=== PATIENT | male | born 1980 | race Caucasian/White ===

== ENCOUNTER 2018-05-18 14:45 | Emergency (ER) | payer SELFPAY ==
[~2018-05-18] VITALS: Ht 162.6 cm; Wt 59.1 kg
[2018-05-18 14:49] VITALS: TEMP 97.7
[2018-05-18] MEDS ORDERED: IMITREX NA20 MG/SPRA NS (15:45)
[2018-05-18 16:37] VITALS: BP 118/69; PULSE 60
== END 2018-05-18 16:39 | disposition home or self-care (01) ==
LOC: COL.ER 14:45
DX: G43.909 Migraine, unspecified, not intractable, without status migrainosus (principal)
CPT/HCPCS: J0780; J1200; J1885; J7030

== ENCOUNTER 2019-01-22 20:01 | Emergency (ER) | payer SELFPAY ==
[~2019-01-22] VITALS: Ht 162.6 cm; Wt 59.1 kg
[~2019-01-22 20:01] MED LIST: IMITREX NA20 MG/SPRA NS
[2019-01-22 20:10] VITALS: BP 132/80; PULSE 91; TEMP 98.8
== END 2019-01-22 22:14 | disposition left against medical advice (07) ==
LOC: COL.ER 20:01
DX: S61.011A Laceration without foreign body of right thumb without damage to nail, initial encounter (principal); W22.8XXA Striking against or struck by other objects, initial encounter

== ENCOUNTER 2019-01-23 11:57 | Emergency (ER) | payer SELFPAY ==
[~2019-01-23] VITALS: Ht 162.6 cm; Wt 59.1 kg
[2019-01-23 13:37] VITALS: BP 112/68; PULSE 89; TEMP 97.9
== END 2019-01-23 13:38 | disposition home or self-care (01) ==
LOC: COL.ER 11:57
DX: S67.01XA Crushing injury of right thumb, initial encounter (principal); G43.909 Migraine, unspecified, not intractable, without status migrainosus; F17.210 Nicotine dependence, cigarettes, uncomplicated; Z90.89 Acquired absence of other organs; Z88.0 Allergy status to penicillin; W23.0XXA Caught, crushed, jammed, or pinched between moving objects, initial encounter

== ENCOUNTER 2019-03-17 17:54 | Emergency (ER) | payer SELFPAY ==
[~2019-03-17] VITALS: Ht 162.6 cm; Wt 59.1 kg
[2019-03-17 18:00] VITALS: BP 106/56; TEMP 98.2
[2019-03-17] MEDS ORDERED: MEDROL 4MG DOSPA4 MG PO (18:24)
[2019-03-17 19:01] VITALS: PULSE 78
== END 2019-03-17 19:01 | disposition home or self-care (01) ==
LOC: COL.ER 17:54
DX: J20.9 Acute bronchitis, unspecified (principal)
CPT/HCPCS: J7512

== ENCOUNTER 2019-04-06 18:13 | Emergency (ER) | payer SELFPAY ==
[~2019-04-06] VITALS: Ht 162.6 cm; Wt 59.1 kg
[~2019-04-06 18:13] MED LIST changes: +MEDROL 4MG DOSPA4 MG PO
[2019-04-06 18:20] VITALS: BP 108/55; TEMP 98.7
[2019-04-06 21:00] VITALS: PULSE 51
== END 2019-04-06 21:00 | disposition home or self-care (01) ==
LOC: COL.ER 18:13
DX: R36.9 Urethral discharge, unspecified (principal); Z88.0 Allergy status to penicillin; Z90.89 Acquired absence of other organs; F17.210 Nicotine dependence, cigarettes, uncomplicated

== ENCOUNTER 2020-08-11 11:38 | Emergency (ER) | payer BC ==
[~2020-08-11] VITALS: Ht 162.6 cm; Wt 59.1 kg
[2020-08-11 11:48] VITALS: TEMP 97.8
[2020-08-11 12:31] VITALS: BP 110/78; PULSE 76
== END 2020-08-11 12:33 | disposition home or self-care (01) ==
LOC: COL.ER 11:38
DX: R10.13 Epigastric pain (principal); F17.210 Nicotine dependence, cigarettes, uncomplicated; Z88.0 Allergy status to penicillin